=== PATIENT | male | born 1940 | race Caucasian/White ===

== ENCOUNTER 2021-01-06 01:39 | Inpatient (IN) | payer MEDICARE, BC ==
[~2021-01-06] VITALS: Ht 175.3 cm; Wt 78.9 kg
--- NOTE | 2021-01-06 01:53 | NUR ---
PT BIBRA C/O HAVING AN EPISODE OF FEELING WEAK TO BLE. + URINARY INCONTINENCE. UPON TRIAGE STATES FEELS BETTER, AWAITING ER MD FOR EVAL AND ORDERS.
--- NOTE | 2021-01-06 02:14 | NUR ---
URINE COLLECTED, SENT TO LAB.
--- NOTE | 2021-01-06 02:14 | NUR ---
IV INITIATED, LW 20G, BLOOD WORK COLLECTED, SENT TO LAB.
[2021-01-06 02:28] LABS: BILIRUBIN,URINE Negative (NEGATIVE); COLOR,URINE YELLOW (YELLOW); LEUKOCYTE ESTERASE ,URINE Negative (NEGATIVE); NITRITE, URINE Negative (NEGATIVE); PH,URINE 7.5 (5.0-8.0); PROTEIN,URINE Negative (NEGATIVE); UGLUCOSE Negative (NEGATIVE); UROBILINOGEN,URINE 0.2 EU/dL (0.2)
[2021-01-06 02:29] LABS: CALCIUM, SERUM 9.3 mg/dL (8.5-10.1); CARBON DIOXIDE 32 mmol/L (21-32); CHLORIDE 99 mmol/L (98-107); CREATININE 1.6 mg/dL (0.6-1.3); GLUCOSE 116 mg/dL (74-106); POTASSIUM 4.1 mmol/L (3.5-5.1); SODIUM SERUM 137 mmol/L (136-145); UREA NITROGEN, BLOOD 27 mg/dL (7-18)
[2021-01-06 02:43] LABS: ALANINE AMINOTRANSFERASE 26 U/L (12-78); ALKALINE PHOSPHATASE 92 U/L (46-116); ASPARTATE AMINOTRANSFERASE 20 U/L (15-37); BILIRUBIN,DIRECT 0.2 mg/dL (0.0-0.2); BILIRUBIN,TOTAL 0.6 mg/dL (0.2-1.0); TOTAL PROTEIN, SERUM 7.5 g/dL (6.4-8.2)
[2021-01-06 02:53] LABS: BASOPHILS % (AUTO) 0.4 % (0.0-2.0); EOSINOPHILS % (AUTO) 0.6 % (0.0-6.0); HEMATOCRIT 43 % (39-51); HEMOGLOBIN 13.9 g/dL (13.5-17.5); LYMPHOCYTES % (AUTO) 11.4 % (20.0-44.0); MEAN CORPUSCULAR HGB CONC 33 g/dl (31.0-36.0); MEAN CORPUSCULAR VOLUME 85 fL (80-96); MONOCYTES # (AUTO) 0.9 K/uL (0.1-1.30); NEUTROPHILS # (AUTO) 7.1 K/uL (1.8-8.9); NEUTROPHILS % (AUTO) 77.6 % (43.0-81.0); PLATELET COUNT (AUTO) 353 K/uL (150-450); RED BLOOD CELL COUNT(AUTO) 5.04 MIL/uL (4.5-6.0); WHITE BLOOD COUNT (AUTO) 9.1 K/uL (4.3-11.0)
[2021-01-06] MEDS ORDERED: IV NS 0.9% 1,000 ML BAG IV ONE (03:00)
--- NOTE | 2021-01-06 03:16 | NUR ---
SAROJID SWABBED, SENT TO LAB.
--- NOTE | 2021-01-06 04:41 | NUR ---
REPORT GIVEN TO RN FOR CHERYL. PT TRANSFERED PER ACLS PROTOCOL.
[2021-01-06 05:00] VITALS: BP 141/89
[2021-01-06 05:10] VITALS: BP 141/89
--- NOTE | 2021-01-06 05:15 | NUR ---
TELE/RN ADMITTING NOTE PATIENT ARRIVED TO UNIT VIA GURNEY AND 2 STAFF MEMBERS. PATIENT IS ALERT AND ORIENTED X 4. ABLE TO MAKE NEEDS KNOWN. NO COMPLAINTS OF PAIN AT THIS TIME. IV ACCESS TO LEFT WRIST #20G INTACT, PATENT AND SALINE LOCKED. SKIN CHECK PERFORMED WITH MULTIPLE SCABS NOTED. PICTURES TAKEN AND PLACED IN CHART. PATIENT STATES HE HAS BEEN COUGHING UP BLOOD FOR THE PAST 4 MONTHS. STATES IS CURRENTLY SEEING QC MANAGER. VIBRATORY PILE DRIVER MD CHOE NOTIFIED WITH NEW ORDER FOR PULMONARY CONSULT. HOME MEDICATIONS ENTERED. PATIENT ORIENTED TO CALL LIGHT, ROOM AND UNIT. CALL LIGHT WITHIN REACH. ASPIRATION, FALL AND SAFETY PRECAUTIONS MAINTAINED. WILL CONTINUE TO MONITOR.
[2021-01-06] MEDS ORDERED: AMLO2.5T4 PO (05:54)
[2021-01-06] MEDS ORDERED: FLUT1BLS6 IH (05:54)
[2021-01-06] MEDS ORDERED: ALPR1TAB2 PO (05:54)
[2021-01-06] MEDS ORDERED: FURO-144 PO (05:54)
[2021-01-06] MEDS ORDERED: ALEN70TA80 PO (05:54)
[2021-01-06] MEDS ORDERED: FERR325T23 PO (05:54)
[2021-01-06] MEDS ORDERED: APIX5TAB PO (05:54)
[2021-01-06] MEDS ORDERED: ASPI-1169 PO (05:54)
[2021-01-06] MEDS ORDERED: ATOR20TA PO (05:54)
[2021-01-06] MEDS ORDERED: METO25TA6 PO (05:54)
[2021-01-06] MEDS ORDERED: LIPA1CAP27 PO (05:54)
[2021-01-06] MEDS ORDERED: TAMS-12 PO (05:54)
[2021-01-06] MEDS ORDERED: AZITHROMYCIN 500 MG in IV D5W 250 ML IV SCH (06:30)
[2021-01-06] MEDS ORDERED: ZOLPIDEM TARTRATE 5 MG TABLET PO PRN (06:30)
[2021-01-06] MEDS ORDERED: MAGNESIUM HYDROXIDE 30 ML UDC PO PRN (06:30)
[2021-01-06] MEDS ORDERED: MAG HYDROX/AL HYDROX/SIMETH 30 ML UDC PO PRN (06:30)
[2021-01-06] MEDS ORDERED: Z GUARD REMEDY 2 OZ OINT TP PRN (06:30)
[2021-01-06] MEDS ORDERED: ONDANSETRON HCL/PF 4 MG/2 ML VIAL IVP PRN (06:30)
[2021-01-06] MEDS ORDERED: ACETAMINOPHEN 325 MG TABLET PO PRN (06:30)
[2021-01-06] MEDS ORDERED: CEFTRIAXONE 1 G VIAL ONE (06:56)
--- NOTE | 2021-01-06 07:00 | NUR ---
TELE/RN CLOSING NOTE PATIENT CURRENTLY RESTING IN BED. AWAKE, ALERT AND ORIENTED X 4. ABLE TO MAKE NEEDS KNOWN. NO COMPLAINTS OF PAIN AT THIS TIME. IV ACCESS TO LEFT WRIST #20G INTACT AND PATENT. CONTINUES ON 07/15 NS @ 75ML/HR. CONTINUES ON IV ABX. CALL LIGHT WITHIN REACH. ASPIRATION, FALL AND SAFETY PRECAUTIONS MAINTAINED. WILL ENDORSE PLAN OF CARE TO ONCOMING SHIFT.
[2021-01-06] MEDS: CEFTRIAXONE 1 G in IV D5W 50 ML IV SCH (07:02)
[2021-01-06] MEDS: IV 1/2NS 1000 ML 1,000 ML IV PRN (07:03)
[2021-01-06 08:00] VITALS: BP 113/70
--- NOTE | 2021-01-06 08:09 | NUR ---
TELE/RN OPENING NOTE RECEIVED PATIENT IN BED. AWAKE, ALERT AND ORIENTED X 4. ABLE TO MAKE NEEDS KNOWN. NO COMPLAINTS OF PAIN AT THIS TIME. IV ACCESS TO LEFT WRIST #20G INTACT AND PATENT. CONTINUES ON 07/15 NS @ 75ML/HR. CONTINUES ON IV ABX. CALL LIGHT WITHIN REACH. ASPIRATION, FALL AND SAFETY PRECAUTIONS MAINTAINED. WILL CONTINUE TO MONITOR PATIENT.
[2021-01-06] MEDS: AZITHROMYCIN 500 MG in IV D5W 250 ML IV SCH (08:46)
[2021-01-06] MEDS: PANTOPRAZOLE 40 MG TABLET.DR PO SCH (08:57)
[2021-01-06 12:00] VITALS: BP 115/74
[2021-01-06 16:00] VITALS: BP 112/80
--- NOTE | 2021-01-06 19:23 | NUR ---
TELE/RN CLOSING NOTE PATIENT IN BED. AWAKE, ALERT AND ORIENTED X 4. ABLE TO MAKE NEEDS KNOWN. NO COMPLAINTS OF PAIN AT THIS TIME. STABLE ON ROOM AIR. ON TELE WITH A READING OF Ary-ESTEPHANIA HR89. IV ACCESS TO LEFT WRIST #20G INTACT AND PATENT. CONTINUES ON / NS @ 75ML/HR. CONTINUES ON IV ABX. CALL LIGHT WITHIN REACH. ASPIRATION, FALL AND SAFETY PRECAUTIONS MAINTAINED. WILL ENDORSE TO THE PM SHIFT FOR CONTINUITY OF CARE.
--- NOTE | 2021-01-06 19:30 | NUR ---
RECEIVED PT IN BED. AOX4. PT IS ON RA. NO SOB NOTED. NO S/S OF DISTRESS NOTED. PT IS BRP WIT ASSIST AND INDEPENDENT; PT HAS NO C/O PAIN AT THIS TIME; RESPIRATIONS EVEN AND UNLABORED. ABLE TO MAKE NEEDS KNOWN. IV ACCESS TO LEFT WRIST #20G INTACT, PATENT AND FLUSHING WELL.T CAITLYN WITH A READING OF A-FLUTTER HR88 CONTROLLED. ALL AND SAFETY MEASURES IN PLACE AND MAINTAINED AT ALL TIMES; BED ALARM ON, BED IN LOW AND LOCKED POSITION, HOB ELEVATED TO SEMI FOWLERS POSITION, CALL LIGHT AND TABLE WITHIN REACH, SIDE RAILS UPX2. WILL CONTINUE WITH PLAN OF CARE
[2021-01-06 20:00] VITALS: BP 119/76
[2021-01-06 23:49] LABS: D-DIMER 0.99 mg/L(FEU (0.17-0.50)
[2021-01-07] VITALS: BP 125/87
[2021-01-07] MEDS: IV 1/2NS 1000 ML 1,000 ML IV PRN ×2 (00:34→14:44)
[2021-01-07 04:00] VITALS: BP 125/76
[2021-01-07] MEDS: CEFTRIAXONE 1 G in IV D5W 50 ML IV SCH (05:48)
[2021-01-07 05:51] LABS: BASOPHILS % (AUTO) 0.3 % (0.0-2.0); EOSINOPHILS % (AUTO) 0.8 % (0.0-6.0); HEMATOCRIT 44 % (39-51); HEMOGLOBIN 14.3 g/dL (13.5-17.5); MEAN CORPUSCULAR HGB CONC 33 g/dl (31.0-36.0); MEAN CORPUSCULAR VOLUME 85 fL (80-96); MONOCYTES # (AUTO) 0.9 K/uL (0.1-1.30); MONOCYTES % (AUTO) 9.1 % (2.0-12.0); NEUTROPHILS # (AUTO) 7.6 K/uL (1.8-8.9); NEUTROPHILS % (AUTO) 79.8 % (43.0-81.0); PLATELET COUNT (AUTO) 345 K/uL (150-450); RED BLOOD CELL COUNT(AUTO) 5.13 MIL/uL (4.5-6.0); WHITE BLOOD COUNT (AUTO) 9.5 K/uL (4.3-11.0)
--- NOTE | 2021-01-07 06:23 | NUR ---
RN CLOSING NOTE PT AWAKE IN BED COMFORTABLY AT THIS TIME,PT REMAINED STABLE THROUGHOUT SHIFT. ALL NEEDS, MEDICATIONS, AND CARE ADMINISTERED ANTICIPATED PER ORDER; PT ENCOURAGED TO REPOSITION Q2H AND PRN, 1/2 NS @ 75ML/HR RUNNING ON LWRIST G# 20. SAFETY PRECAUTIONS IN PLACE AND MAINTAINED AT ALL TIMES. BED IN LOWEST POSITION, HOB ELEVATED, SIDE RAILS UP X2. CALL LIGHT AND TABLE WITHIN REACH. WILL ENDORSE TO DAY SHIFT NURSE FOR CHERYL.
--- NOTE | 2021-01-07 07:16 | NUR ---
JEWELRY MAKING INSTRUCTOR OPENING NOTES RECEIVED PATIENT AWAKE IN BED IN NO ACUTE SIGNS OF DISTRESS. A/O X4. ABLE TO MAKE NEEDS KNOWN., DENIES PAIN OR ANY DISCOMFORTS AT THIS TIME. PT ON TELEMONITORING WITH CURRENT READING OF A-FIB WITH A-FLUTTER AND HR OF 115, NO C/O CARDIAC DISTRESS VOICED AT THIS TIME. IV ACCESS ON LEFT WRIST #20G INTACT AND PATENT, IVF OF 1/2 NS @ 75ML/HR IN FUSING WELL, NO S/S OF INFILTRATION AT SITE NOTED. . FALL AND SAFETY PRECAUTIONS MAINTAINED: BED IN LOWEST LOCKED POSITION, SIDE-RAILS X2 AND CALL LIGHT W/IN REACH. WILL CONTINUE TO MONITOR PATIENT.
[2021-01-07] MEDS: PANTOPRAZOLE 40 MG TABLET.DR PO SCH (07:46)
[2021-01-07] MEDS: AZITHROMYCIN 500 MG in IV D5W 250 ML IV SCH (07:47)
[2021-01-07 08:00] VITALS: BP 128/90
[2021-01-07 08:02] LABS: CALCIUM, SERUM 9.3 mg/dL (8.5-10.1); CREATININE 0.9 mg/dL (0.6-1.3); POTASSIUM 3.8 mmol/L (3.5-5.1)
[2021-01-07 08:19] LABS: THYROID STIMULATING HORMONE 1.149 uIU/mL (0.358-3.74)
--- NOTE | 2021-01-07 09:21 | NUR ---
RN NOTES PT PICKED-UP FOR CT OF CHEST W/O CONTRAST.
--- NOTE | 2021-01-07 09:52 | NUR ---
RN NOTES URINE SPECIMEN COLLECTED AND CALLED LAB TO PICK-UP SPECIMEN.
[2021-01-07 11:20] LABS: BILIRUBIN,URINE NEGATIVE (NEGATIVE); COLOR,URINE YELLOW (YELLOW); LEUKOCYTE ESTERASE ,URINE NEGATIVE (NEGATIVE); NITRITE, URINE NEGATIVE (NEGATIVE); PROTEIN,URINE NEGATIVE (NEGATIVE); UGLUCOSE NEGATIVE (NEGATIVE)
[2021-01-07 11:33] LABS: CREATININE, URINE 29.9 MG/DL (30.0-125.0); URINE TOTAL PROTEIN 14.1 mg/dL (0-11.9)
--- NOTE | 2021-01-07 12:08 | NUR ---
RN NOTES [facility] AND CONFIRMATION RECEIVED. NO RESPONSE RECEIVED YET. WILL ENDORSE.
[2021-01-07 12:09] LABS: BACTERIA,URINE Rare /HPF (None Seen); RBC,URINE NONE SEEN /HPF (0-2); SQUAMOUS EPITHELIAL CELL,UR Rare /HPF (None Seen); WBC,URINE 0-2 /HPF (0-3)
--- NOTE | 2021-01-07 12:14 | NUR ---
RN NOTES RECEIVED CALL FROM SHAYY BAKER MD REGARDING RESULTS OF CT CHEST W/O CONTRAST. CALLED SANTOSH GUERRERO MD EFFERVESCENT SALTS COMPOUNDER AND HE STATED THAT HE'S AWARE ALREADY OF THE RESULTS AND ORDERED TO OBTAINED PULMONOLOGY RECORDS FROM [facility] FOR THE LAST 4 MONTHS. PT CONSENTED AND SIGNED FOR THE RECORDS TO BE FAXED TO UNIT.
[2021-01-07 12:58] LABS: EOSINOPHIL,URINE None Seen
[2021-01-07 16:00] VITALS: BP 131/74
--- NOTE | 2021-01-07 18:31 | NUR ---
DOCTOR NATUROPATHIC CLOSING NOTES PATIENT RESTING IN BED WATCHING TV AT THIS TIME. A/O X4. ABLE TO MAKE NEEDS KNOWN. ON ROOM AIR, TOLERATING WELL WITH NO SOB NOTED DURING THE DAY. ON TELE-MONITORING WITH READING OF A-FIB WITH A-FLUTTER AND HR OF 110-130 DURING THE DAY, PT WITH NO C/O CARDIAC DISTRESS VOICED. IV ACCESS ON LEFT WRIST #20G INTACT AND PATENT, IVF OF 1/2 NS @ 75ML/HR INFUSING WELL, NO S/S OF INFILTRATION AT SITE NOTED. FALL AND SAFETY PRECAUTIONS MAINTAINED: BED IN LOWEST LOCKED POSITION, SIDE-RAILS X2 AND CALL LIGHT W/IN EASY REACH OF PT. ALL NEEDS AND CARE ATTENDED WELL. WILL ENDORSE CHERYL TO DIRECTOR OF EDUCATION NURSE.
[2021-01-07 20:00] VITALS: BP 138/97
[2021-01-08] VITALS: BP 132/97
[2021-01-08 04:00] VITALS: BP 114/60
[2021-01-08] MEDS: IV 1/2NS 1000 ML 1,000 ML IV PRN (05:03)
[2021-01-08] MEDS: CEFTRIAXONE 1 G in IV D5W 50 ML IV SCH (05:48)
[2021-01-08 06:01] LABS: BASOPHILS % (AUTO) 0.5 % (0.0-2.0); EOSINOPHILS % (AUTO) 0.8 % (0.0-6.0); HEMATOCRIT 45 % (39-51); HEMOGLOBIN 14.8 g/dL (13.5-17.5); LYMPHOCYTES # (AUTO) 1.2 K/uL (0.8-4.8); LYMPHOCYTES % (AUTO) 13.3 % (20.0-44.0); MEAN CORPUSCULAR HGB CONC 33 g/dl (31.0-36.0); MEAN CORPUSCULAR VOLUME 84 fL (80-96); MONOCYTES # (AUTO) 0.8 K/uL (0.1-1.30); MONOCYTES % (AUTO) 8.8 % (2.0-12.0); NEUTROPHILS # (AUTO) 6.9 K/uL (1.8-8.9); NEUTROPHILS % (AUTO) 76.6 % (43.0-81.0); PLATELET COUNT (AUTO) 329 K/uL (150-450); RED BLOOD CELL COUNT(AUTO) 5.36 MIL/uL (4.5-6.0); WHITE BLOOD COUNT (AUTO) 9.1 K/uL (4.3-11.0)
--- NOTE | 2021-01-08 06:20 | NUR ---
SMOKED MEAT PREPARER NOTES AWAKE & RESPONSIVE. NOT IN ANY DISTRESS. NO SOB NOTED. DENIES ANY PAIN OR DISCOMFORT AT THIS TIME. ON TELE AFLUTTER @ 110-120S WITH IVF INFUSING WELL. MONITORED ACCORDINGLY. CALL LIGHT WITHIN REACH. BED IN LOWEST POSITION. SR UP X 2 FOR SAFETY. WILL ENDORSE TO NEXT SHIFT.
[2021-01-08 06:37] LABS: ALBUMIN 2.8 g/dL (3.4-5.0); BILIRUBIN,TOTAL 0.6 mg/dL (0.2-1.0); CALCIUM, SERUM 9.2 mg/dL (8.5-10.1); CREATININE 0.8 mg/dL (0.6-1.3); PHOSPHORUS 3.4 mg/dL (2.5-4.9); POTASSIUM 3.9 mmol/L (3.5-5.1); TOTAL PROTEIN, SERUM 7.2 g/dL (6.4-8.2)
--- NOTE | 2021-01-08 07:13 | NUR ---
PET SITTER OPENING NOTES PATIENT RECEIVED AWAKE IN BED IN NO ACUTE SIGNS OF DISTRESS. A/O X4. ABLE TO MAKE NEEDS KNOWN, DENIES PAIN OR ANY DISCOMFORTS AT THIS TIME. ON ROOM AIR, TOLERATING WELL WITH NO SOB NOTED. ON TELE-MONITOR WITH CURRENT READING OF A-FLUTTER AND HR OF 110-120'S, NO C/O CARDIAC DISTRESS VOICED AT THIS TIME. IV ACCESS ON LEFT WRIST #20G INTACT AND PATENT, IVF OF 1/2 NS @ 75ML/HR IN FUSING WELL, NO S/S OF INFILTRATION AT SITE NOTED. SAFETY PRECAUTIONS MAINTAINED: BED IN LOWEST LOCKED POSITION, SIDE-RAILS X2 AND CALL LIGHT W/IN REACH. WILL CONTINUE TO MONITOR PATIENT.
[2021-01-08] MEDS: PANTOPRAZOLE 40 MG TABLET.DR PO SCH (07:26)
[2021-01-08] MEDS: AZITHROMYCIN 500 MG in IV D5W 250 ML IV SCH (07:26)
[2021-01-08 08:00] VITALS: BP 129/89
--- NOTE | 2021-01-08 08:10 | NUR ---
RN NOTES DR MISTRY ON UNIT AND INFORMED THAT PATIENT IS ON TELE-MONITOR WITH READING OF A-FLUTTER HR 120-130'S AT THIS TIME. DR MISTRY WHEN TO SEE TELE-MONITOR AND SAME WHEN TO SEE PATIENT. NO ORDERS MADE AT THIS TIME.
[2021-01-08] MEDS: TAMSULOSIN 0.4 MG CAP.SR.24H PO SCH (08:56)
[2021-01-08] MEDS: ASPIRIN 81 MG TAB.CHEW PO SCH (08:56)
[2021-01-08] MEDS: METOPROLOL TARTRATE 25 MG TABLET PO SCH ×2 (08:56→16:46)
[2021-01-08] MEDS: LIPASE/PROTEASE/AMYLASE 1 EACH CAPSULE.DR PO SCH ×4 (08:57→20:21)
[2021-01-08] MEDS: FERROUS SULFATE (325 MG) 325 MG/TAB TABLET PO SCH (08:57)
[2021-01-08] MEDS: FUROSEMIDE 40 MG TABLET PO SCH (08:57)
[2021-01-08] MEDS: AMLODIPINE BESYLATE 2.5 MG TABLET PO SCH (08:57)
[2021-01-08] MEDS: APIXABAN 5 MG TABLET PO SCH ×2 (08:58→16:48)
[2021-01-08] MEDS ORDERED: AMIODARONE 150 MG in IV D5W 100 ML IV ONE (09:00)
[2021-01-08] MEDS ORDERED: AMIODARONE 450 MG in IV D5W 250 ML IV PRN (09:00)
[2021-01-08] MEDS ORDERED: ALENDRONATE 70 MG TABLET PO SCH (09:00)
--- NOTE | 2021-01-08 09:38 | NUR ---
RN NOTES STAT EKG DONE AND INFORMED DR MISTRY OF RESULTS.
--- NOTE | 2021-01-08 10:28 | NUR ---
RN NOTES PATIENT TRANSFERRED TO [facility] RM 103 VIA ACLS PROTOCOL. REPORT GIVEN TO JAMEL ORTEGA.
--- NOTE | 2021-01-08 10:30 | NUR ---
RN NOTES BEDSIDE ENDORSEMENT DONE; REPORT RECEIVED FROM JAMEL MILNER. PATIENT TRANSFERRED TO ROOM 103-1. ATTACHED TO TELE MONITOR.
[2021-01-08] MEDS: AMIODARONE 450 MG in IV D5W 241 ML IV PRN ×2 (11:16→17:53)
--- NOTE | 2021-01-08 11:17 | NUR ---
RN NOTES VS TAKEN AND RECORDED. AMIODARONE BOLUS GIVEN, ASSISTED BY TEAM TRUCK DRIVER VINICIUS. WILL START AMIODARONE DRIP PER PROTOCOL.
--- NOTE | 2021-01-08 11:30 | NUR ---
RN NOTES AMIODARONE DRIP INITIATED PER PROTOCOL. NO ADVERSE REACTION NOTED. PATIENT CURRENTLY IN BED RESTING, AWAKE AND VERBALLY RESPONSIVE. ON CONTINUOUS TELE MONITORING.
--- NOTE | 2021-01-08 14:05 | NUR ---
RN NOTES PATIENT PROVIDED W/ CRANBERRY JUICE REQUESTED; VS TAKEN. SPOKE W/ PARTS CONTROL CLERK, PATIENT HR BETWEEN 80'S TO 90'S, NO CARDIAC DISTRESS NOTED.
[2021-01-08] MEDS ORDERED: CHOL100062 PO (15:50)
[2021-01-08] MEDS ORDERED: LOSA50TA39 PO (15:50)
--- NOTE | 2021-01-08 18:01 | NUR ---
RN NOTES AMIO DRIP RATE CHANGED TO 0.5MG/HR; RECEIVED NEW BAG FROM PHARMACY. VS TAKEN AND RECORDED. NO CARDIAC DISTRESS NOTED.
--- NOTE | 2021-01-08 19:00 | NUR ---
RN NOTES PATIENT IN BED RESTING, AWAKE AND VERBALLY RESPONSIVE. CONTINUES ON AMIODARONE DRIP, CURRENT RATE AT 0.5MG/HR; ENDORSED TO WAITER/WAITRESS THIRD CLASS RN CURRENT RATE AND MONITORING PROTOCOL. SAFETY MEASURES MAINTAINED.
--- NOTE | 2021-01-08 19:20 | NUR ---
RN NOTE RECEIVED PATIENT IN BED RESTING ALERT ORIENTED X4 VERBALLY RESPONSIVE ON ROOM AIR O2:94% IV SITE IS ON LEFT WRIST INTACT PATENT ON AMIODARONE DRIP 0.5MG/MIN FOR A-FIB AND A FLUTTER,CONTINENT TO BOWEL/BLADDER,CALL LIGHT WITHIN REACH,SAFETY MEASURE IMPLEMENT BED IN LOW POSITION AND LOCKED,CONTINUE TO MONITOR.
[2021-01-08 20:00] VITALS: BP 124/80
[2021-01-08] MEDS: ALPRAZOLAM 1 MG TABLET PO SCH (21:02)
[2021-01-09] VITALS (32 sets, daily range): BP systolic 97–152; BP diastolic 58–118
[2021-01-09] MEDS: CEFTRIAXONE 1 G in IV D5W 50 ML IV SCH (06:32)
--- NOTE | 2021-01-09 07:15 | NUR ---
[facility] RN NOTE PATIENT IN BED ,ALL NEEDS ATTENDED ALERT, ORIENTED X3 ON TELE MONITOR AFIB HR 88, ON RA NO SOB NOTED , RT WRIST HL INTACT AND FLUSHED WELL ON AMIODARONE DRIP ORDERED AT 0.5 MG PER HOUR , BED IN LOWEST AND LOCKED POSITION , CALL LIGHT WITHIN REACH , WILL CONT TO MONITOR
[2021-01-09] MEDS: AMIODARONE 450 MG in IV D5W 241 ML IV PRN (07:27)
--- NOTE | 2021-01-09 07:28 | NUR ---
RN NOTE PATIENT REMAINS ON ALERT ORIENTED X4 VERBALLY RESPONSIVE ON AMIODARONE DRIP 0.5MG/MIN NO SOB NOT ACUTE DISTRESS NOTED,ENDORSE NEXT COMING SHIFT FOR CONTINUATION OF CARE.
[2021-01-09] MEDS: PANTOPRAZOLE 40 MG TABLET.DR PO SCH (07:30)
--- NOTE | 2021-01-09 07:30 | NUR ---
[facility] RN NOTE SEEN BY DR MISTRY NOTIFIED THAT STILL ON AMIODARONE DRIP OK TO CONT AT THIS AT TIME BUT ORDERED TO TRANSFER TO ICU FOR POSSIBLE CARDIOVERSION
--- NOTE | 2021-01-09 08:00 | NUR ---
rn notes Get patient transferred from [facility] for procedure of bedside Cardioversion. monitoring tech bedside shows AFIB HR- 88, bp 125/85, t-98, o2-93 room air. Patient a/o x3, NPO at this time. refused pain, no acute respiratory distress. Patient using urinal. Prepared crush card . ECHO bedside done. patient scheduled at 1100 am bedside procedure via MD Long. will monitoring. call light within to reach.
--- NOTE | 2021-01-09 08:00 | NUR ---
[facility] RN NOTE TRANSFERRED TO ICU BY ACLS PROTOCOL BY BED ORDERED REPORT GIVEN TO LIZETH MCCULLOUGH
--- NOTE | 2021-01-09 08:05 | NUR ---
rn notes Patient getting amiodarone drip 0.5 ml/hr on left wrist.
[2021-01-09] MEDS: FUROSEMIDE 40 MG TABLET PO SCH (09:00)
[2021-01-09] MEDS: METOPROLOL TARTRATE 25 MG TABLET PO SCH ×2 (09:00→17:18)
[2021-01-09] MEDS: AMLODIPINE BESYLATE 2.5 MG TABLET PO SCH (09:00)
[2021-01-09] MEDS: LIPASE/PROTEASE/AMYLASE 1 EACH CAPSULE.DR PO SCH ×4 (09:00→20:34)
[2021-01-09] MEDS: TAMSULOSIN 0.4 MG CAP.SR.24H PO SCH (09:00)
[2021-01-09] MEDS: FERROUS SULFATE (325 MG) 325 MG/TAB TABLET PO SCH (09:00)
[2021-01-09] MEDS: ASPIRIN 81 MG TAB.CHEW PO SCH (09:00)
[2021-01-09] MEDS: APIXABAN 5 MG TABLET PO SCH ×2 (09:00→17:17)
[2021-01-09] MEDS: AZITHROMYCIN 500 MG in IV D5W 250 ML IV SCH (10:02)
--- NOTE | 2021-01-09 11:05 | NUR ---
RN NOTES PATIENT SIGN CONSENT FORM FOR CARDIOVERSION, ALSO PATIENT'S SON CALLED NAME YAO PHONE # [phone] AND WANTED TO SPEAK ROAD MACHINE RUNNER BEFORE PROCEDURE. NOTIFIED Dr BRADFORD, AND HOSPITALIST Dr PIZARRO.
[2021-01-09] MEDS ORDERED: ANESTHESIA TRAY IN PYXIS 1 EA TRAY MC ONE (11:26)
--- NOTE | 2021-01-09 11:26 | NUR ---
RN NOTES ANESTHESIOLOGIST WITH THE PATIENT AT THIS TIME.
--- NOTE | 2021-01-09 11:46 | NUR ---
rn notes STOP AMIODARONE DRIP AT THIS TIME VIA DR MISTRY. SEDATION GIVEN VIA ANESTHESIOLOGIST, EKG DONE VIA RT.
--- NOTE | 2021-01-09 11:50 | NUR ---
RN NOTES PROCEDURE DONE VIA Dr MISTRY, PATIENT HR-64 ON BEDSIDE MONITOR. PATIENT MASK 10L. WILL MONITORING.
--- NOTE | 2021-01-09 12:00 | NUR ---
RN NOTES PATIENT HR-80, BP 114/78, AWAKE, BUT FEEL SLEEPY, AND WILL EAT HIS LUNCH LATER. NO ACUTE RESPIRATORY DISTRESS, WILL MONITORING.
--- NOTE | 2021-01-09 14:00 | NUR ---
rn notes patient tolerated lunch 100%, due medication administered, am care done. patient using urinal. no acute respiratory distress. call light within to reach. will monitoring.
[2021-01-09 16:07] LABS: *SPE A/G RATIO 0.8 (0.7-1.7); *SPE ALBUMIN 2.9 g/dL (2.9-4.4); *SPE ALPHA-1-GLOBULIN 0.3 g/dL (0.0-0.4); *SPE ALPHA-2-GLOBULIN 0.9 g/dL (0.4-1.0); *SPE GLOBULIN, TOTAL 3.7 g/dL (2.2-3.9); *SPE M-SPIKE 0.2 g/dL (Not Observed); *SPEGAMMA GLOBULIN 1.5 g/dL (0.4-1.8)
--- NOTE | 2021-01-09 16:30 | NUR ---
rn notes Transferred patient back to the [facility] TELE room 103 bed A at this time. Report given JAMEL Casillas. plan of care. Patient stable, no acute respiratory distress.
--- NOTE | 2021-01-09 16:50 | NUR ---
telephone sales representative note back from icu alert oriented, on tele monitor sr hr 86 on 2l nc ,no sob noted , bed in lowest and locked position , will cont to monitor
[2021-01-09] MEDS: AMIODARONE HCL 200 MG TABLET PO SCH (17:19)
--- NOTE | 2021-01-09 17:32 | NUR ---
SLIP FILLER NOTE PATIENT C\O THAT HAVE LOOSE STOOL AFTER EAT FOOD , USING LOMOTIL AT HOME DAILY ALSO FROM 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
[2021-01-09] MEDS: DIPHENOXYLATE HCL/ATROP SULF 1 UDTAB TABLET PO SCH (17:46)
--- NOTE | 2021-01-09 18:21 | NUR ---
PRESS HAND SUPERVISOR NOTE CALLED TO DR MISTRY TO CLARIFY METOPROLOL ORDER STATED OK TO D\C, ORDER CARRIED OUT
--- NOTE | 2021-01-09 18:36 | NUR ---
RN CLOSING NOTES PATIENT RESTING IN BED WATCHING TV AT THIS TIME. A/O X4. ABLE TO MAKE NEEDS KNOWN. ON ROOM AIR, TOLERATING WELL WITH NO SOB NOTED DURING THE DAY. ON TELE-MONITORING WITH READING OF SINUS RHYTHM IN THE 80'S. PATIENT RETURNED FROM ICU POST SUCCESSFUL CARDIOVERSION. AMIODARONE DRIP D/C, NOW ON ORAL TABLETS. METOPROLOL PO D/C PER MD ORDERS. FALL AND SAFETY PRECAUTIONS MAINTAINED: BED IN LOWEST LOCKED POSITION, SIDE-RAILS X3 AND CALL LIGHT W/IN EASY REACH OF PT. ALL NEEDS ATTENDED. NO ACUTE DISTRESS NOTED AT THIS TIME. WILL ENDORSE CONTINUITY OF CARE TO ORCHARD PRUNER NURSE.
--- NOTE | 2021-01-09 19:30 | NUR ---
PULLMAN CLERK OPENING NOTE RECEIVED PT IN BED WITH EYES CLOSED, EASILY AROUSED. A/O X4. PT IS STABLE ON ROOM AIR. NO SOB NOTED. NO S/S OF RESPIRATORY DISTRESS. PT IS ON EXTERNAL CERTIFIED LACTATION COUNSELOR READING SR 82. PT HAS NO C/O PAIN OR DISCOMFORT AT THIS TIME. IV ACCESS IN RIGHT HAND #20, INTACT AND PATENT. SAFETY MEASURES MAINTAINED. BED IN LOWEST LOCKED POSITION, HOB ELEVATED, SIDE RAILS UP X2. CALL LIGHT AND TABLE WITHIN REACH. WILL CONTINUE WITH PLAN OF CARE.
[2021-01-09] MEDS: MUPIROCIN OINT 2% 22 GM TUBE NS SCH (20:34)
[2021-01-09] MEDS: ALPRAZOLAM 1 MG TABLET PO SCH (21:41)
[2021-01-10] VITALS: BP 114/81
[2021-01-10 04:00] VITALS: BP 135/89
[2021-01-10] MEDS: CEFTRIAXONE 1 G in IV D5W 50 ML IV SCH (05:31)
--- NOTE | 2021-01-10 06:24 | NUR ---
MERGERS AND ACQUISITIONS ATTORNEY CLOSING NOTE PT IS IN BED WITH EYES CLOSED, EASILY AROUSABLE. A/O X4. PT IS STABLE ON ROOM AIR. NO SOB NOTED. NO S/S OF RESPIRATORY DISTRESS. PT ON EXTERNAL SOFTWARE DEVELOPMENT MANAGER READING SR 72. PT HAS NO C/O PAIN OR DISCOMFORT AT THIS TIME. IV ACCESS INTACT, PATENT, AND FLUSHING WELL. ALL NEEDS HAVE BEEN MET. SAFETY AND ASPIRATION PRECAUTIONS MAINTAINED AT ALL TIMES. BED IN LOWEST LOCKED POSITION, HOB ELEVATED, SIDE RAILS UP X2. CALL LIGHT AND TABLE WITHIN REACH. WILL ENDORSE TO ONCOMING NURSE FOR CHERYL.
[2021-01-10 06:35] LABS: BASOPHILS % (AUTO) 0.2 % (0.0-2.0); EOSINOPHILS % (AUTO) 1.1 % (0.0-6.0); HEMATOCRIT 43 % (39-51); HEMOGLOBIN 14.1 g/dL (13.5-17.5); LYMPHOCYTES # (AUTO) 1.1 K/uL (0.8-4.8); LYMPHOCYTES % (AUTO) 12.1 % (20.0-44.0); MEAN CORPUSCULAR HGB CONC 33 g/dl (31.0-36.0); MEAN CORPUSCULAR VOLUME 84 fL (80-96); MONOCYTES # (AUTO) 0.8 K/uL (0.1-1.30); NEUTROPHILS # (AUTO) 6.7 K/uL (1.8-8.9); NEUTROPHILS % (AUTO) 77.6 % (43.0-81.0); PLATELET COUNT (AUTO) 283 K/uL (150-450); RED BLOOD CELL COUNT(AUTO) 5.07 MIL/uL (4.5-6.0); WHITE BLOOD COUNT (AUTO) 8.7 K/uL (4.3-11.0)
[2021-01-10 06:56] LABS: ALBUMIN 2.6 g/dL (3.4-5.0); BILIRUBIN,TOTAL 0.4 mg/dL (0.2-1.0); CALCIUM, SERUM 8.7 mg/dL (8.5-10.1); PHOSPHORUS 4.5 mg/dL (2.5-4.9); POTASSIUM 3.9 mmol/L (3.5-5.1); TOTAL PROTEIN, SERUM 6.6 g/dL (6.4-8.2)
--- NOTE | 2021-01-10 07:25 | NUR ---
RN OPENING NOTES PATIENT RECEIVED RESTING IN BED, ALERT AND ORIENTED X4, ABLE TO MAKE NEEDS KNOWN. NO COMPLAINTS OF PAIN AT THIS TIME. PATIENT ON O2 THERAPY VIA NC AT 2 LPM BREATHING EVEN AND UNLABORED AND TOLERATING WELL. PATIENT ON TELE MONITOR. IV SITE ON RIGHT HAND # 20 G PATENT AND INTACT. SAFETY MEASURES IMPLEMENTED, BED LOCKED IN LOWEST POSITION, SIDE RAILS UP X2, CALL LIGHT WITHIN REACH. WILL CONTINUE TO MONITOR AND PROVIDE CARE THROUGHOUT SHIFT.
[2021-01-10 08:00] VITALS: BP 100/71
[2021-01-10] MEDS: LIPASE/PROTEASE/AMYLASE 1 EACH CAPSULE.DR PO SCH ×3 (08:57→16:39)
[2021-01-10] MEDS: AZITHROMYCIN 500 MG in IV D5W 250 ML IV SCH (08:57)
[2021-01-10] MEDS: PANTOPRAZOLE 40 MG TABLET.DR PO SCH (08:57)
[2021-01-10] MEDS: TAMSULOSIN 0.4 MG CAP.SR.24H PO SCH (08:58)
[2021-01-10] MEDS: FERROUS SULFATE (325 MG) 325 MG/TAB TABLET PO SCH (08:58)
[2021-01-10] MEDS: DIPHENOXYLATE HCL/ATROP SULF 1 UDTAB TABLET PO SCH (08:58)
[2021-01-10] MEDS: ASPIRIN 81 MG TAB.CHEW PO SCH (08:58)
[2021-01-10] MEDS: FUROSEMIDE 40 MG TABLET PO SCH (08:58)
[2021-01-10] MEDS: AMIODARONE HCL 200 MG TABLET PO SCH ×2 (08:59→16:40)
[2021-01-10] MEDS: APIXABAN 5 MG TABLET PO SCH ×2 (09:00→16:52)
[2021-01-10] MEDS: AMLODIPINE BESYLATE 2.5 MG TABLET PO SCH (09:00)
[2021-01-10] MEDS: MUPIROCIN OINT 2% 22 GM TUBE NS SCH (09:19)
[2021-01-10 12:00] VITALS: BP 119/77
[2021-01-10] MEDS ORDERED: AMIO200T7 PO (13:06)
--- NOTE | 2021-01-10 14:55 | NUR ---
REPORT GIVEN TO CLARITZA FROM [facility] [phone].
[2021-01-10 16:00] VITALS: BP 111/72
[2021-01-10 16:40] VITALS: BP 111/72
--- NOTE | 2021-01-10 19:49 | NUR ---
patient discharged from hospital in stable condition. patient discharge paperwork and instructions provided for client and snf prior to discharge. charge nurse called and gave report to nurse at [facility]. patient care transferred over to [facility] for transportation.
== END 2021-01-10 20:19 | DRG 308 ==
LOC: ER 01:42 → TELE 04:30 → TELE-TD 01-08 10:28 → ICU 01-09 08:09 → TELE1 01-09 16:54
PROVIDERS: ADMIT Internal Medicine
PROC: 5A2204Z Restoration of Cardiac Rhythm, Single (ICD-10-PCS; principal; 2021-01-09)
DX: I48.92 Unspecified atrial flutter (principal); N17.0 Acute kidney failure with tubular necrosis; J44.0 Chronic obstructive pulmonary disease with (acute) lower respiratory infection; J44.1 Chronic obstructive pulmonary disease with (acute) exacerbation; R04.2 Hemoptysis; J98.11 Atelectasis; M84.48XA Pathological fracture, other site, initial encounter for fracture; J90 Pleural effusion, not elsewhere classified; G62.9 Polyneuropathy, unspecified; I25.10 Atherosclerotic heart disease of native coronary artery without angina pectoris; R62.7 Adult failure to thrive; Z86.711 Personal history of pulmonary embolism; I48.91 Unspecified atrial fibrillation; Z95.1 Presence of aortocoronary bypass graft; R32 Unspecified urinary incontinence; N18.9 Chronic kidney disease, unspecified; I13.10 Hypertensive heart and chronic kidney disease without heart failure, with stage 1 through stage 4 chronic kidney disease, or unspecified chronic kidney disease; N40.0 Benign prostatic hyperplasia without lower urinary tract symptoms; F32.9 Major depressive disorder, single episode, unspecified; F17.200 Nicotine dependence, unspecified, uncomplicated; I70.0 Atherosclerosis of aorta; E78.5 Hyperlipidemia, unspecified; F60.9 Personality disorder, unspecified; Z95.2 Presence of prosthetic heart valve; M81.0 Age-related osteoporosis without current pathological fracture; Z98.890 Other specified postprocedural states; Z20.822 Contact with and (suspected) exposure to COVID-19
CPT/HCPCS: 36415; 70450-TC; 71045-TC; 71250-TC; 76770-TC; 80048-TC; 80053-TC; 80061-TC; 80076-TC; 81001; 82550-TC; 82570-TC; 82962-TC; 83735-TC; 83880; 83970; 84100-TC; 84155; 84155-TC; 84165; 84300-TC; 84443-TC; 84484-TC; 85025-TC; 85378-TC; 85610-TC; 85730-TC; 87070-TC; 87081-TC; 92526; 92611-TC; 93307-TC; 93970-TC; 97116-TC; 97530-TC; A4623; C9803; G0378; J0282; J0456; J0696; J2704; J3490; J7030; J7060